=== PATIENT | female | born 1985 | race Two or more races ===

== ENCOUNTER 2017-09-11 11:50 | Emergency (ER) | payer OTHER ==
[~2017-09-11] VITALS: Ht 165.1 cm; Wt 108.9 kg
--- NOTE | 2017-09-11 12:00 | NUR ---
[id number] [facility] [place] 2 WKS. BS-138. A/OX 4. BREATHING EVEN AND UNLABORED. NO SOB, NAD, VITALS STABLE. SKIN WARM AND DRY. SAFETY AND COMFORT MEASURES IN PLACE. AWAITING MD ORDERS.
[2017-09-11] MEDS ORDERED: IPRATROPIUM NEB FS 0.5 MG/2.5 ML AMPUL.NEB NEB ONE (12:30)
[2017-09-11] MEDS ORDERED: ALBUTEROL FS 2.5 MG/3 ML VIAL.NEB NEB ONE (12:30)
[2017-09-11] MEDS ORDERED: predniSONE 20 MG TABLET PO ONE (12:30)
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
[2017-09-11] MEDS ORDERED: predniSONE 20 MG TABLET ONE (12:39)
[2017-09-11] MEDS ORDERED: ALBUTEROL FS 2.5 MG/3 ML VIAL.NEB ONE (12:42)
[2017-09-11] MEDS ORDERED: IPRATROPIUM NEB FS 0.5 MG/2.5 ML AMPUL.NEB ONE (12:42)
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
--- NOTE | 2017-09-11 14:45 | NUR ---
Patient discharged to home in stable condition. Written and verbal after care instructions given. Patient verbalizes understanding of instruction.
[2017-09-11 14:51] VITALS: BP 139/67
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
== END 2017-09-11 14:45 | disposition home or self-care (01) ==
LOC: ER 11:53
DX: J45.909 Unspecified asthma, uncomplicated (principal); E66.01 Morbid (severe) obesity due to excess calories; E11.9 Type 2 diabetes mellitus without complications; R46.89 Other symptoms and signs involving appearance and behavior; Z91.14 Patient's other noncompliance with medication regimen; Z88.6 Allergy status to analgesic agent
CPT/HCPCS: 71045; 82962; 84703; 93005; 94640 ×2; 99285; A4606; J7512; Z7610